=== PATIENT | male | born 1950 | race Caucasian/White ===

== ENCOUNTER 2022-09-20 10:56 | Emergency (ER) | payer MEDICARE, OTHER, SELFPAY ==
[2022-09-20 10:57] VITALS: BP 125/94; PULSE 99; RESP 16; TEMP 36.3; O2SAT 97; BMI 23.5
--- NOTE | 2022-09-20 11:08 | EDS_ITS ---
HPI History of Present Illness HPI Narrative: Right forearm laceration. Chief Complaint: Laceration Informant: patient Occured/Mechanism Mechanism/Context: Yes injury Onset/Context/Timing Onset: Today Context: Sudden Onset Timing: Continuous Current Severity: Mild Maximum Severity: Mild Associated Symptoms Associated Symptoms: Negative for Parasthesia, Weakness or Loss of Funtion Narrative Narrative: 72-year-old male states that he was working on a light fixture when it cut his dorsal right forearm on the radial side. He had immediate bleeding. Believes his tetanus is up-to-date. This occurred about an hour ago. It is not Worker's Comp. Tetanus Immunization: 5-10 years Prior similar symptoms: No Recent Illness/Hospitalization: No PFSH PFSH Home Medications Multivitamin Complete 75 mg PO DAILY 09/06/13 [History Last Taken 09/05/13 08:00 75 MG] aluminum hydrox-magnesium carb 95 mg-358 mg/15 mL oral suspension (Gaviscon) 40 mg PO 4X/DAY 09/06/13 [History Last Taken 09/05/13 22:00 40 MG] ezetimibe 10 mg-simvastatin 40 mg tablet (Vytorin) 40 tab PO DAILY 09/06/13 [History Last Taken 09/05/13 22:00 40 MG] omega-3 fatty acids 1,000 mg capsule 2,400 mg PO BID 09/06/13 [History Last Taken 09/05/13 22:00 2400 MG] omeprazole 20 mg capsule,delayed release 40 mg PO DAILY 09/06/13 [History Last Taken 09/05/13 08:00 40 MG] olmesartan 20 mg tablet (Benicar) 20 mg PO DAILY 07/10/15 [History Last Taken Unknown] Allergy/AdvReac Type Severity Reaction Status Date / Time diphenhydramine HCl Allergy Rash Verified 09/20/22 10:58 [From Benadryl] atorvastatin calcium AdvReac Severe MUSCLE PAIN Verified 09/20/22 10:58 [From Lipitor] codeine AdvReac Upset Verified 09/20/22 10:58 Stomach Social History Smoking Status: Never smoker ROS ROS ED ROS Narrative Denies recent illness. Review of Systems ROS Unobtainable: Denies due to encephalopathy Constitutional Constitutional ED: Denies chills or fever(s) Eyes Eyes: Denies blurry vision ENT ENT ED: Denies ear pain Cardiovascular Cardiovascular: Denies chest pain Respiratory/Chest Respiratory/Chest: Denies cough Gastrointestinal Gastrointestinal: Denies abdominal pain Genitourinary Genitourinary ED: Denies dysuria Musculoskeletal Musculoskeletal: Denies back pain Integumentary Denies abscess Neurologic Neurologic: Denies headache(s) Psychiatric Psychiatric: Denies anxiety Endocrine Endocrinology: Denies cold intolerance Hematologic/Lymphatic Hematologic/Lymphatic: Denies easy bleeding Allergic/Immunologic Allergic/Immunologic ED: Denies mouth swelling EXAM Physical Exam Narrative Exam Narrative: 72-year-old male no acute distress vital signs stable afebrile. HEENT exam normal. Lungs are clear. Heart regular rate and rhythm. Abdomen soft nontender. Moving all 4 extremities neurovascular intact. Right distal forearm just proximal to the wrist he has a horizontal 2 and half centimeter laceration. It is oozing blood. There may be a small arterial laceration. There is no signs of any tendon injury or any involvement of the joint or bone. 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 Normal touch sensation and cap refill. Const Vital Signs: 09/20/22 10:57 Temperature 97.4 F L Temperature Source Temporal Pulse Rate 99 Respiratory Rate 16 Blood Pressure 125/94 H Blood Pressure Mean 104 Pulse Ox 97 Oxygen Delivery Method Room Air Positive well nourished and well developed; Negative for obese, cachectic, contractures or unkempt General Appearance ED: well developed and NAD; Negative for unkempt, cachectic, contractures, cyanotic or diaphoretic Nutritional Appearance: Negative for cachectic or obese HEENT Reports moist mucous membranes normocephalic and atraumatic; Negative for trauma or tenderness Eyes PERRL and EOMs intact bilaterally General Eye ED: Negative for other Neck full ROM and supple General: Negative for tenderness Lymph Lymphatic: Negative for other Chest Wall inspection of chest normal and palpation of chest normal Resp normal respiratory effort and clear to auscultation bilaterally Effort and Inspection: Negative for pain with movement Auscultation: Negative for rales, rhonchi or wheezes Cardio regular rate, regular rhythm, S1 normal heart sound, S2 normal heart sound and no murmurs Rate: Negative for bradycardia or tachycardic Rhythm: Negative for abnormal rhythm GI non-tender, non-distended and no masses Palpation: soft; Negative for tender Extremity normal to inspection and full ROM Extremity Narrative: Except dorsum right forearm just proximal to the wrist over the radial side again on the dorsum is about 2-1/2 cm laceration. With oozing of blood. Involve the skin and subcu tissue. No tendon or joint involvement. Full flexion extension, strength and sensation distal to the wound. Normal radial pulse. It is on the extensor surface of the forearm. General Extremety ED: Negative for edema General Extremity: Negative for edema Neuro oriented x3, CN's II-XII intact bilaterally, moves all extremities, no focal motor deficits and no sensory deficits noted Sensorium / Orientation: alert, oriented to person, oriented to place and oriented to time Sensory Exam: No sensory level loss detected Motor Exam: strength 5/5 throughout Psych mental status grossly normal Appearance: Negative for unkempt Attitude: No agitated Mood & Affect: Negative for depressed or anxious Skin General Skin Exam: Negative for petechiae Lesions: no lesions Rashes: no rashes Trauma: laceration; Negative for no lacerations or abrasions MDM MDM MDM Narrative Medical decision making narrative: 72-year-old male with a right forearm laceration. Believes his tetanus is up-to-date. Will be cleaned, local anesthetized, explored and repaired. Procedures Lacerations Right distal forearm laceration repair:: Length: 0.98 in Depth: Sub Q Shape: Linear Prep: Shure-Clens Laceration repair: Irrigated, Lidocaine, Local, Skin sutures and Wound explored Number of Sutures/[place]: 3 Suture Information: Ethilon, Simple and - (3-0 Ethilon sutures.) Comment: Right forearm laceration repair. 2.5 cm. Dorsum of the forearm. Just proximal to the wrist. Over the radial side. Local anesthetized lidocaine. Eurax cleaned with Alicia-Nina. Washed and irrigated with saline. Explored. Closed using 3, 3-0 Ethilon simple interrupted sutures. Proper hemostasis wound closure is obtained. Patient was instructed on wound care and suture removal in 7 to 10 days. Proper hemostasis and wound closure was obtained. Discharge Plan Triage Chief Complaint: Laceration ED Provider: Ayaz Johnston Dx/Rx/DC Orders Clinical Impression: Laceration of forearm, right Instructions: ED Laceration Extremity Prescriptions: No Action omega-3 fatty acids 1,000 MG capsule 2,400 mg PO BID Label Comments: dietary supplement omeprazole 20 MG capsule 40 mg PO DAILY Label Comments: acid reflux/heart burn ezetimibe-simvastatin [Vytorin 10-40] 1 TABLET tablet 40 tab PO DAILY Label Comments: lower cholesterol Multivitamin Complete 75 mg PO DAILY Label Comments: vitamin supplement aluminum hydrox-magnesium carb [Gaviscon] 355 ML Oral.Susp 40 mg PO 4X/DAY Label Comments: indigestion olmesartan [Benicar] 20 MG tablet 20 mg PO DAILY Primary Care Provider: Hanane Gerardo Referrals: Hanane Gerardo MD [Primary Care Provider] - 10 Day for suture removal Activity Restrictions/Additional Instructions: Ice and elevate to decrease pain, swelling and bleeding. Tylenol for pain. If our dressing stays dry and clean you can leave it on for 3 days. Then after the third day you can start cleaning it with soap and water. Dry carefully. Do not soak in any water. Stitches out in at minimum of 7 and maximum 10 days. Watch for any signs of infection such as redness, pus, fever or streaks of seen return. Watch for significant swelling if seen return. Disposition Disposition: Home, Self Care
== END 2022-09-20 11:48 | disposition home or self-care (01) ==
LOC: ED 11:40
PROVIDERS: Emergency Provider Emergency Medicine; PCP Family Medicine; Visit Provider Emergency Medicine
DX: S51.811A Laceration without foreign body of right forearm, initial encounter (principal); Y99.0 Civilian activity done for income or pay; W26.8XXA Contact with other sharp object(s), not elsewhere classified, initial encounter
CPT/HCPCS: 12001; 99283

== ENCOUNTER → 2023-06-22 | Outpatient (CLI) | payer MEDICARE, OTHER, SELFPAY ==
--- NOTE | 2023-06-22 13:14 | CT_ITS ---
CT BILATERAL LOWER EXTREMITY WITH 3-D IMAGING CLINICAL INDICATION: PRE OP TECHNIQUE: Axial CT images of the BILATERAL lower extremity was performed without IV contrast material. Coronal and sagittal reformats were provided. RADIATION DOSAGE (If Supplied By Facility): CTDIvol = ( 10.53 ) mGy, DLP = ( 741.07 ) mGycm COMPARISON: No relevant prior comparison study available FINDINGS: Bones: Imaging of the hip joint was obtained. There is evidence of a degenerative changes of both sacroiliac joints. Marked degree of joint space narrowing involving the right hip joint with subchondral cystic changes and a degenerative spur formation along the femoral head as well as the acetabulum. Imaging of the knee joints was obtained. The patient is status post left total knee replacement. There is good alignment. Soft Tissues: The deep soft tissue structures are unremarkable. The superficial soft tissues are unremarkable without evidence of edema, hematoma, or foreign body. CT/Extremity Lower without Contra IMPRESSION: Marked degree of joint space narrowing of the right hip joint with spur formation and subchondral cysts. Electronically Signed: Moreno Ngo MD at 15:03 EDT ,
== END | disposition home or self-care (01) ==
LOC: CT 12:44
PROVIDERS: PCP Family Medicine; Referring Provider Specialist; Visit Provider Specialist
DX: M16.11 Unilateral primary osteoarthritis, right hip (principal)
CPT/HCPCS: 73700

== ENCOUNTER 2023-06-30 05:27 | Day surgery (SDC) | payer MEDICARE, OTHER, SELFPAY ==
--- NOTE | 2023-06-22 13:13 | EKG12_ITS ---
Test Reason : PRE-OP Blood Pressure : / mmHG Vent. Rate : 080 BPM Atrial Rate : 080 BPM P-R Int : 150 ms QRS Dur : 090 ms QT Int : 380 ms P-R-T Axes : 055 012 043 degrees QTc Int : 438 ms Sinus rhythm with occasional Premature ventricular complexes and Fusion complexes Otherwise normal ECG Confirmed by JAMAL NORIEGA, SEAN ([id number]), editor greeting card A[place]ANDRIA GODOY ([id number]) on 06/23/2023 8:53:49 AM Referred By: Robert Azul Confirmed By:SEAN BERRY MD
[2023-06-22 13:14] LABS: Absolute Lymphocyte Count 2.01 X10^3/uL (0.83-4.51); Absolute Neutrophil Count 3.3 X10^3/uL (2.0-7.7); Basophil# 0.01 X10^3/uL; Basophil% 0.2 % (0-1); Eosinophil# 0.09 X10^3/uL; Eosinophils% 1.5 % (0-5); Hematocrit 40.8 % (40-54); Hemoglobin 13.8 g/dL (13.0-16.5); Lymphocyte # 2.01 X10^3/ul (0.83-4.51); Lymphocyte % 33.7 % (19-41); Mean Corp Hgb Conc 33.8 g/dL (32-36); Mean Corpuscular Hgb 32.2 pg (27.0-32.0); Mean Corpuscular Volume 95.3 fL (80-94); Mean Platelet Vol. 9.3 fl (6.2-12.0); Monocyte# 0.51 X10^3/uL; Monocyte% 8.6 % (0-10); NRBC Flagged by Analyzer 0 % (0-5); Neutrophil # 3.32 X10^3/uL (2.7-7.7); Neutrophil % 55.7 % (47-70); Platelet Count 217 K/mm3 (150-450); RBC Distribution Width CV 13.4 % (11.6-14.6); RBC Distribution Width SD 47.4 fl (35.1-43.9); Red Blood Count 4.28 M/mm3 (4.6-6.2)
[2023-06-22 13:37] LABS: Albumin, Serum 3.4 g/dL (3.2-5.0); Anion Gap 3 (5-15); BUN 12 mg/dL (7-18); BUN/Creat Ratio 13.7 RATIO (10-20); Calcium,Total 8.9 mg/dL (8.5-10.1); Chloride 104 mmol/L (98-107); Creatinine, Serum 0.88 mg/dL (0.70-1.30); EST Glomerular Filtration Rate 91 mL/min (>60); Est Glom Filt Rate - Afr Amer 110 mL/min (>60); Glucose 145 mg/dL (74-106); Potassium 3.7 mmol/L (3.5-5.1); Sodium Level 138 mmol/L (136-145)
[2023-06-23 10:21] LABS: Magnesium 2.2 mg/dL (1.6-2.6)
--- NOTE | 2023-06-28 13:08 | PCM.HP.BLA ---
History and Physical History and Physical? Patient Name: Troy Wallace : 1950 From:? ANNIA SHIPLEY PA-C? DATE OF PRE-OPERATIVE EXAM: 06/28/2023 DATE OF SURGERY:? 06/30/2023 SCHEDULED PROCEDURE:? Robotic-assisted right total hip arthroplasty HISTORY OF PRESENT ILLNESS: Preoperative history and physical exam was performed on June 28, 2023.? This is a whose had recent increase in pain in his right hip in March 2023.? There is no trauma or injury.? He has had ongoing problems with his low back for approximately 3 years.? He states 3 years ago while horseback riding she had significant increase in pain in his back and legs.? He was evaluated by Dr. Vergara at that time.? No injections were given as his pain improved.? He does report having a series of 3 injections for the lumbar spine one year ago.? His last injection for the spine was in March 2023.? He states it is not help.? He is having right groin pain and right thigh pain.? He has been walking with limping gait.? His pain is constant, aching, stabbing.? Pain is increased with going up and down stairs and walking.? He has difficult time with leisure activities such as horseback riding and golf.? He has tried rest, heat, elevation without relief.? Patient has tried oral medications including Tylenol, oxycodone, and the gabapentin.? He has been getting oxycodone from pain management.? He denies past history of surgery on the right hip.? Denies any recent chest pain, shortness breath, fevers chills or recent infections.? After failing conservative measures and discussing treatment options with Dr. Rafal Du, the patient does wish to proceed with a robotic-assisted right total hip arthroplasty.? He has medical history pertinent for hypertension, hyperlipidemia, benign prostatic hyperplasia.? He denies any past history of DVT or pulmonary embolism. REVIEW OF SYSTEMS: ROS: Const: Denies anorexia, change in appetite, fever, difficulty sleeping, weight change. CV: Denies chest pain, heart murmur, irregular heartbeat and peripheral vascular disease. Resp: Denies asthma, cough, pneumonia, sleep apnea, shortness of breath, tuberculosis and wheezing. GI: Reports heartburn, but denies constipation, diarrhea, nausea, rectal itching, bloody stools and vomiting. : Denies incontinence. Musculo: Reports gait disturbance, pain and trouble walking, but denies leg swelling and weakness. Skin: Denies Raynaud's, history of shingles and tattoo. Neuro: Denies ambulatory dysfunction, dizziness, numbness/tingling and tremor. Psych: Denies anxiety, depression, insomnia, mental illness and stress. [place]/Lymph: Denies anemia, bleeding/bruising tendency and past transfusion. Reviewed and updated. PAST MEDICAL HISTORY: Advance Care Plan: Other Directive, POA Effective Date: 11/27/2021 PMH: Medical Problems: Arthritis, High Blood Pressure, Cancer, Hypercholesterolemia, Gastroesophageal Reflux Disease, Benign Prostatic Hyperplasia Accidents: Fracture - RT WRIST A CHILD RT THUMB-FOOTBALL Sports Related Injury - LT KNEE TORN MENISCUS LT SHOULDER DISLOCATION FROM FOOTBALL RRF - (2014) LACERATION Surgical Hx: LT Shoulder - (1973) [facility] 09-07-13 I & D? LT Knee? ?Javid - INSERTION OF PIC LINE 09-08-13 Knee Replacement LT - (1999) [facility] Anesthesia Complications: None Assistive Devices: None Reviewed and updated. 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 Personal Habits:? Cigarette Use: Never Smoked Cigarettes.Smokeless Tobacco: Never Used Smokeless Tobacco.E-Cigarette Use: Never used.Alcohol: Daily.Drug Use: Denies Use.Enjoy Exercising: Exercises 1-3 X/Week. Reviewed and updated. VITALS: Ht: 68 Wt: 149lb Wt k.586 BMI: 22.7 BP: 130/78 Pulse: 67 Resp: 16 T: 97.9 T: 36.6C Pain Level: 10 O2SatR: 96 ALLERGIES: Benadryl Codeine? MEDICATIONS: Tamsulosin HCL 0.4 mg 1 by mouth every day, Zofran 4 mg one by mouth every 8 as needed nausea, Doxycycline Hyclate 100 mg 1 by mouth twice a day, Gaviscon 95-358 mg/15ml take as needed, Multivitamins? 1 tab PO daily, Amlodipine Besylate 5 mg 1 by mouth every day, Rosuvastatin Calcium 40 mg take 1 tablet by mouth every day AT bedtime, Oxycodone HCL 5 mg take 1/2 to 1 tablet by mouth up to three times daily as needed for pain, Gabapentin 100 mg take 1 capsule by mouth three times daily, Omeprazole 40 mg 1 by mouth every day PRE-OP EXAM:? General appearance:NORMAL? ? ? Other: Eyes: Conjunctivae and lids: NORMAL? Pupils: ERR Ears, Nose, Mouth, and Throat: NORMAL? Other: Inspection of lips, teeth and gums: NORMAL? ?Other: Neck: Examination of neck: no masses noted. Respiratory: Assessment of respiratory effort: NORMAL? ?Other: ?Auscultation of lungs: clear to auscultation no wheezes, rhonchi or rales. Cardiovascular:? Auscultation of heart: regular rate and rhythm, no murmurs, gallops or rubs. PHYSICAL EXAMINATION: On exam patient does walk with an antalgic gait.? He has limited mobility with his right hip secondary to pain.? Patient has 20 flexion contracture.? 5 internal and external rotation with increased pain.? Sensation intact to light touch.? He currently has pain in the lumbar region but unable to reproduce tenderness to palpation on exam.? No buttock pain at this time.? No lateral hip pain at this time. IMAGING STUDIES: Previous x-rays of the right hip reveal severe joint space narrowing, subchondral sclerosis, osteophyte formation consistent with severe stage IV [id number] osteoarthritis. X-rays were obtained at [facility] [place] on June 28, 2023 including 2 views lateral standing and sitting sacral views reveals no acute finding for fracture.? He has severe lumbar degenerative disc disease with disc space narrowing, subchondral sclerosis, osteophyte formation.? No lytic or blastic lesions. IMPRESSION: 1.? Severe right hip osteoarthritis 2.? Lumbar degenerative disc disease 3.? Hypertension 4.? Hypercholesterolemia 5.? Gastroesophageal reflux disease 6.? Benign prostatic hyperplasia PLAN: Dr. Rafal Du did discuss and review with the patient all treatment options including surgical versus nonsurgical options.? Patient does wish to proceed with the above-stated procedure.? Potential risks, benefits, and complications of the procedure were discussed in detail including but not limited to , infection, nerve and blood vessel damage, persistent pain, numbness, tingling, paresthesias, blood clot, pulmonary embolism, and requirement for possible further surgery.? The patient expressed full understanding and has no further questions for the doctor.? Patient does agree to proceed with the above-stated procedure and has signed the surgery consent form. POST-OP MEDICATION PLAN: Pain Medications: Patient was given the following medications at the preoperative visit: Oxycodone, doxycycline, Zofran, and tamsulosin.? He was instructed to waste picker aspirin 81 mg, extra strength Tylenol, and senna.? Patient takes omeprazole at home.? Due to preoperative testing patient was staph positive that we are going to proceed postoperatively with doxycycline for 2 weeks.? He was instructed that he is more sensitive to the sunlight and should take appropriate precautions.? Also recommend taking probiotic while on the antibiotic.? Due to patient's benign prostatic hyperplasia we are also given him a 7 day prescription for tamsulosin.? He will begin this today.? He is aware that postoperatively there is risk of urinary retention.? He does not see any urologist at this time. DVT Prophylaxis:? Aspirin 81 mg twice daily for 4 weeks postoperatively.? Denies past history of DVT or pulmonary embolism This dictation was created using voice recognition software. Phonetic and/or grammatical errors may exist. ___? I have re-examined the patient.? There are no clinical changes since date of exam. ___? See progress notes for changes. ___? Dictated on admission Date: ? ? ?Time: Signature:
[2023-06-30] VITALS (14 sets, daily range): BP systolic 110–133; BP diastolic 63–86; PULSE 77–102; RESP 12–18; TEMP 36.2–37; O2SAT 95–100; BMI 23.1
[2023-06-30] MEDS: Magnesium 1 GM over 15 mins IV (06:25)
[2023-06-30] MEDS: Lactated Ringers 1,000 ML 999 ML IV ×2 (06:25→10:14)
[2023-06-30] MEDS: Acetaminophen 500 MG Tablet 1000 MG PO (06:26)
[2023-06-30] MEDS: Gabapentin 600 MG Tablet PO (06:26)
[2023-06-30] MEDS: Celecoxib 200 MG Capsule 400 MG PO (06:27)
--- NOTE | 2023-06-30 06:54 | OP.PCM_ITS ---
Report of Operation Date of Procedure: 06/30/23 Pre-Operative Diagnosis: Right hip primary osteoarthritis Post-Operative Diagnosis: Right hip primary osteoarthritis Surgery/Procedure Performed:: Right minimally invasive robotic assisted direct anterior total hip replacement Description of Surgical Findings:: Stable hip with equal leg length Surgeon: Rafal Du inside sales territory manager: Tad Nielson Type of Anesthesia: General Anesthesiologist: Jeffery Abdalla Special Medications: 2 g Ancef, 1 g TXA at incision, 1 g TXA closure, 10 mg Decadron, joint cocktail (5 mg Duramorph, 30 mL of 0.5% Ropivicaine, 1000 units of epinephrine, 30 mg of Toradol) Specimen's removed: Bony cuts Estimated Blood Loss (mL): 350 Fluids Replaced: 1500 ml Description of Procedure: Components used: 1. Accolade 2 Huntington femoral stem size 5 127? 2. Poornima trident 2 acetabular shell size 56 mm 3. Poornima X3 polyethylene F 4. Huntington Biolox delta 36mm, 2.5mm femoral head Brief history operative indications: 72 yo M who failed conservative measures for their hip osteoarthritis. X-rays were consistent with osteoarthritis including joint space narrowing, osteophyte formation and subchondral cysts. Total hip replacement was discussed with the patient with risks and benefits including but not limited to blood loss, DVTs, PEs, neurovascular damage, dislocation, general risks of anesthesia including loss of life. Patient demonstrated an understanding medical clearance is obtained the patient was consented for surgery. Procedure: On the date of procedure the patient's right hip was marked in the preoperative area. Patient was then taken back to the operating room where anesthesia assumed control of the C-spine and airway and administered anesthetic. Patient was transferred to the operating table and placed in the supine position. The hips were placed at the break of the bed and a sacral bump was placed. The right lower extremity was then prepped out in a sterile fashion using chlorhexidine while the surgeon scrubbed. The PA was vital in the positioning of the patient. Upon reentering the room the right lower extremity was draped in the standard orthopedic fashion and the incision was marked. A timeout was called and everyone agreed upon the side, the site, the procedure be performed, antibody given, and patient's identity. Pins were placed in the iliac crest for robotic guidance. At this time incision was made through skin, subcutaneous tissue, and fat down to fascia. The fascia was then incised and the TFL was retracted laterally. A retractor was placed on the lateral border of the femoral neck. Attention was directed to the inferior portion of the approach and all crossing vessels were identified and appropriately coagulated. A retractor was then placed on the medial portion of the femoral neck. The anterior capsule was then cleared of all soft tissue and then H shaped capsulotomy was made. The retractors were then placed inside the capsule. The femoral neck was identified and a cleanup cut was made. At this time a power corkscrew was used to remove the femoral head. Attention was then turned toward the acetabulum where the soft tissues were appropriately retracted and the acetabulum was registered with the [employer] robotic software. After again reviewing the preoperative plan and verifying appropriate registration the acetabulum was reamed to 56 mm under the guidance of the robotic arm. A 56 mm cup was then selected and impacted into place under the guidance of the robotic arm. Acetabular liner was impacted into place and locking mechanism was verified. Attention was then turned to the femur. Soft tissue releases on the medial and lateral femoral neck were appropriately done, the leg was externally rotated and lateralized. A Hester retractor was placed medially and proximally to the greater trochanter this allowed appropriate visualization and exposure of the femoral canal. Rongeour was then used to remove excess lateral bone. A canal finder and entry broach were used to open the proximal canal. Once we verified we were down the femoral canal we subsequently broached up to a size 5 femur. The appropriate neck was placed in the previously selected head was trialed with a 2.5 mm neck. Traction was pulled and the hip was reduced with internal rotation. Once it was appropriately reduced and stability was checked. There was minimal shuck, equal leg lengths and appropriate stability with hyperextension and external rotation as well as with 90? flexion and internal rotation. Fluoroscopy was then also used to verify the position of the components and leg lengths using the contralateral side for comparison. The trial components were then dislocated the proximal femur was again exposed and the components were removed from the wound. The final components were verified and opened. The wound was copiously irrigated out with normal saline. The acetabulum was checked for any residual debris. The final components were placed and impacted. Traction and internal rotation were again used to reduce the hip. After adequate reduction the hip remained stable with appropriate leg lengths. The final components were once again checked with live fluoroscopy and were found to be satisfactory. The wound was then copiously irrigated with normal saline once more, and hemostasis was obtained. Closure was then done using #1 Vicryl runner to close the fascia. A 2-0 vicryl interuppted sutures were used to close the subcutaneous skin. A 3-0 Monocryl and Steri-Strips were used for final skin closure. A Silverlon dressing was placed. Patient was awakened by anesthesia and transferred to the [facility]. Patient was then transferred to the PACU for recovery. During the course of the procedure the physician antenna installer (PE) played a vital role. Their intimate knowledge of my steps in the procedure aided in safe and expedient completion of the procedure. The PE played a vital rolls in positioning particularly in obtaining the appropriate positioning of the sacral bump. The PE was also vital in the retraction of soft tissues during the exposure and especially the femoral work as this is a vital part of the procedure to prevent complications and fractures. The PE was also vital and protecting soft tissues during times of bony cuts and reaming. He also played a vital role in closure with my direct supervision. The PE was also important during reduction and dislocation of the joint and trials intraoperatively. Postoperative plan: Patient will get 24 hours postop antibiotics. Patient will get in-house physical therapy and will be weight-bear as tolerated. Patient will follow up in office in 2 weeks for a wound check and x-rays. Aspirin 81 mg twice daily. Due to the patient's spinal pelvic relationship he was felt to be high risk for dislocations. For this reason we elected to use robotics on this case. Complications No intraoperative complications Admit VTE Documentation VTE Present on Admission: No VTE Mechan Device Prophylaxis: SCD's and Thigh High SOPHIE Hose VTE Pharm Prophylaxis ordered?: Yes
[2023-06-30] MEDS: Vancomycin IV 1,000 MG/200 ML BAG 200 MG IV (06:55)
--- NOTE | 2023-06-30 07:30 | FEM_PTH ---
PATIENT: AIME FRAGOSO LOC: [facility] U#:[id number] AGE/SX: 72/M ROOM: RE06/30/[address]: Dr. Rafal Du MD : [id number] BED: DIS: 06/30/2023 SPEC #: [id number] RECD: 06/30/23 12:57 STATUS: ANNALISE FERNY #: [id number] ROSA: 06/30/23 07:[address]: Rafal Du DEPT: SURGICAL PATHOLOGY RECD BY: Fani Pritchett ENTERED: 07/01/23 07:35 SP TYPE: FEM HEAD OTHR DR: Dr. Hanane Gerardo MD Tissues: Femoral region, NOS Procedures: Decalcification bone/plaque Surgery Specimen Level V HEADER OPERATION: DRE, robotic assisted right total hip arthroplasty PRE-OP DIAGNOSIS: Severe right hip osteoarthritis TISSUE SUBMITTED: Right femoral head MICROSCOPIC DIAGNOSIS Right femoral head, joint resection: Sever degenerative joint disease. AM/am 07/07/23 MICROSCOPIC DESCRIPTION Slides are reviewed. GROSS DESCRIPTION Received is one container labeled with the patient's name and designated right femoral head. The specimen consists of a bhardwaj femoral head that measures 4.8 x 4.5 x 4.5 cm. The articular surface displays prominent osteophyte formation, eburnation and bone erosion. Also present in the specimen container are multiple irregular fragments of bone reamings and bone fragments measuring in aggregate 10.0 x 8.0 x 2.0 cm. Scrum Coach sections are submitted in two cassettes as follows: 1 - soft tissue and bone reamings, 2 - bone after decalcification. / AM:kartik 07/01/2023 TC:5 [facility]: [id number], [id number]
[2023-06-30 07:32] LABS: Bedside Glucose 105 mg/dL (74-106)
[2023-06-30] MEDS: Cefazolin 2 GM in 0.9% Normal Saline 100 ML IV (07:40)
[2023-06-30] MEDS: TXA 1000mg in NS100 100ml (IVPB at Incision) 660 MG IV (07:45)
[2023-06-30] MEDS: dexAMETHasone 10 MG/ML Vial IV (08:00)
--- NOTE | 2023-06-30 08:48 | RAD_ITS ---
STUDY: X-RAY - PELVIS AND RIGHT HIP REASON FOR EXAM: Male, 72 years old. PAIN TECHNIQUE: 1 views of the pelvis and hip. COMPARISON: None. FINDINGS: Intraoperative imaging provided for right total hip replacement. RAD/Hip 1 view with Pelvis IMPRESSION: Intraoperative imaging provided for right total hip replacement. Electronically Signed: Moreno Ngo MD at 13:53 EDT ,
[2023-06-30] MEDS: TXA 1000mg in NS100 100ml (IVPB at Closure) 660 MG IV (09:00)
[2023-06-30] MEDS: JPS (Morphine 10mg/ml) OPERA.SITE (09:00)
--- NOTE | 2023-06-30 10:09 | RAD_ITS ---
STUDY: X-RAY - PELVIS AND RIGHT HIP REASON FOR EXAM: Male, 72 years old. Total hip replacement -- in PACU TECHNIQUE: 2 views of the pelvis and hip. COMPARISON: Comparison is made with prior study done earlier today. FINDINGS: The patient is status post right total hip replacement. There is good alignment. Postoperative soft tissue changes. RAD/Hip Min 2 Views (Portable) IMPRESSION: Status post right total hip replacement. Postoperative soft tissue changes. Electronically Signed: Moreno Ngo MD at 13:57 EDT ,
[2023-06-30] MEDS: Ketorolac 30 MG/ML Syringe IV (10:12)
[2023-06-30] MEDS: oxyCODONE 5 MG Tablet PO (12:47)
[2023-06-30] MEDS: Cefazolin 1 GM/50 ML BAG IV (12:51)
[2023-06-30] MEDS: Lactated Ringers 1,000 ML 125 ML IV (12:52)
--- NOTE | 2023-06-30 13:50 | SUR.PHASEII ---
patient ready for pt, pt notified
== END 2023-06-30 14:55 | disposition home or self-care (01) ==
LOC: SDC 05:28 → AC 05:28
PROVIDERS: Anesthesiology; Student in an Organized Health Care Education/Training Program; PCP Family Medicine; Referring Provider Specialist; Visit Provider Specialist
PROC: 8E0Y0CZ Robotic Assisted Procedure of Lower Extremity, Open Approach (ICD-10-PCS; CPT 27130; principal; 2023-06-30 07:00)
DX: M16.11 Unilateral primary osteoarthritis, right hip (principal); E78.00 Pure hypercholesterolemia, unspecified; K21.9 Gastro-esophageal reflux disease without esophagitis; N40.0 Benign prostatic hyperplasia without lower urinary tract symptoms; I10 Essential (primary) hypertension; M51.36 Other intervertebral disc degeneration, lumbar region; Z96.641 Presence of right artificial hip joint
CPT/HCPCS: 27130; S2900; 01214; 36415; 73501; 73502; 76000; 80048; 82040; 82962; 83735; 85025; 87077; 87081; 88307; 88311; 93005; 97161; C1776; J7050; J7120; J2405; J3475